=== PATIENT | female | born 1950 | race Caucasian/White ===

== ENCOUNTER → 2020-07-27 09:57 | Outpatient (BNVA) | payer MEDICARE, SELFPAY | PROVIDERS: PCP Nurse Practitioner Family; Referring Provider Registered Nurse; Visit Provider Psychiatry & Neurology Neurology | DX: R25.1 Tremor, unspecified (principal); R42 Dizziness and giddiness; R26.9 Unspecified abnormalities of gait and mobility; I10 Essential (primary) hypertension; J44.9 Chronic obstructive pulmonary disease, unspecified; E11.9 Type 2 diabetes mellitus without complications | CPT/HCPCS: 99205; G2212 ==

== ENCOUNTER → 2020-09-08 10:38 | Outpatient (BNVA) | payer MEDICARE, SELFPAY | PROVIDERS: PCP Nurse Practitioner Family; Referring Provider Nurse Practitioner Family; Visit Provider Psychiatry & Neurology Neurology | DX: F45.8 Other somatoform disorders (principal); R26.9 Unspecified abnormalities of gait and mobility; R25.1 Tremor, unspecified; R42 Dizziness and giddiness; F41.9 Anxiety disorder, unspecified | CPT/HCPCS: 99215; G2212 ==

== ENCOUNTER 2022-02-08 02:18 | Outpatient (CLI) | payer MEDICARE, SELFPAY ==
--- NOTE | 2022-02-08 08:30 | DI.NM_ITS ---
Exam(s) NM BONE SCAN 3 PHASE EXAM: NM BONE SCAN 3 PHASE CLINICAL HISTORY: S/P LT KNEE REPLACEMENT [id number]. COMPARISON: No exams were available for comparison TECHNIQUE: Three-phase bone scan was performed with intravenous infusion of 26.0 millicuries of tech netium 99 labeled methylene diphosphonate. FINDINGS: Immediate images and flow images of the knees show no specific abnormality. There are bilateral knee joint replacements. Slightly increased uptake is noted adjacent to the knee joint replacements bilaterally, consistent with the typical expected appearance. There are areas of mildly increased uptake also seen in midthoracic region, likely degenerative in nature by pattern. No other significant findings. IMPRESSION: No evidence of loosening or infection of bilateral knee joint replacements by nuclear Medicine criter ia. DATA REPOSITORY:
== END 2022-02-08 02:38 ==
LOC: DI 02:19
PROVIDERS: PCP Nurse Practitioner Family; Visit Provider Physician Assistant
DX: Z96.652 Presence of left artificial knee joint (principal)
CPT/HCPCS: 78315